=== PATIENT | female | born 1985 ===

== ENCOUNTER 2016-09-13 13:16 | Observation (INO) | payer MEDICAID, OTHER ==
[2016-09-13 13:16] VITALS: BMI 24.0
[2016-09-13 13:26] VITALS: BP 124/84; RESP 16; TEMP 97.7
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
[2016-09-13 17:16] VITALS: PULSE 71; O2SAT 100
== END 2016-09-13 17:16 | disposition home or self-care (01) ==
LOC: H.ER 13:16 → H.EROBSV 14:10
PROVIDERS: ADMIT Emergency Medicine; ATTEND Emergency Medicine
DX: S00.83XA Contusion of other part of head, initial encounter (principal); S09.90XA Unspecified injury of head, initial encounter; S63.301A Traumatic rupture of unspecified ligament of right wrist, initial encounter; Y04.2XXA Assault by strike against or bumped into by another person, initial encounter; Y93.9 Activity, unspecified